=== PATIENT | male | born 1980 | race Caucasian/White ===

== ENCOUNTER 2016-06-28 00:21 | Inpatient (IN) | payer OTHER ==
[~2016-06-28] VITALS: Ht 180.3 cm; Wt 118.2 kg
--- NOTE | ~2016-06-28 | ECH ---
Transthoracic Echocardiography Report (TTE) Demographics Patient Name LISA HOUSTON Date of Study 06/28/2016 Patient Number [id number] Visit Number [id number] Date of 1980 Room Number 306 Accession Number [id number] Gender Male Age 35 year(s) Referring Basilia Jaime Lawn Caretaker Terrie Snider [facility] Physician Johan Rios MD Physician Interpreting Benson [facility] Special Procedure Tech Physician Supervising Ordering Physician Johan Rios MD/AI PAGAN Nurse Stress Upholstery Trimmer Conclusions Contractility Score Summary At rest the following contractility abnormalities were noted: Hypokinesis of the Mid inferior, the Mid infero-lateral, the Basal infero-lateral and the Basal inferior segments. Contractility of all other segments appeared normal. Summary Technically adequate exam. The estimated left ventricular ejection fraction is 60%. Mild left ventricular hypertrophy. No significant valvular abnormalities. Recommendation The patient will be given the results of this study by the physician who ordered the exam. Procedure Type of Study TTE procedure:Echo Complete SF. Procedure Date Date: 06/28/2016 Start: 11:14 AM Technical Quality: Adequate visualization Indications:Acute [place]. Appropriate Use Criteria: 9 Height: 71 inches Weight: 250 pounds BSA: 2.32 m Rhythm: Within normal limits HR: 72 bpm BP: 114/71 mmHg Allergies - Penicillin. M-Mode/2D Measurements LV Diastolic Dimension: 4.63 cm LV Systolic Dimension: 2.68 cm LV Septum Diastolic: 1.19 cm LV PW Diastolic: 1.02 cm AO Root Dimension: 3.06 cm Cardiac Output: 6.64 l/min LA Dimension: 3.72 cm Cardiac Index: 2.86 l/min*m RV Diastolic Dimension: 3.56 cm LA volume index: 17 ml/m LVOT: 2.48 cm LVOT VTI: 19.11 cm RV Base: 3.2 cm LV Stroke volume: 92.26 ml RV Mid: 3.2 cm LV Stroke volume index: 39.77 ml/m RV Length: 8.5 cm Doppler Measurements AV Peak Velocity: 1.1 m/s MV Peak E-Wave: 0.76 m/s AV Peak Gradient: 4.84 mmHg MV Peak A-Wave: 0.52 m/s AV Mean Gradient: 2.45 mmHg MV E/A Ratio: 1.47 LVOT Peak Velocity: 0.93 m/s MV P1/2t: 64.5 msec AV Area (Continuity):4.12 cm MV Deceleration Time: 256.9 msec MV Area (PHT): 3.41 cm PV Peak Velocity: 0.68 m/s PV Peak Gradient: 1.85 mmHg RA Area: 14 cm Findings Left Ventricle The left ventricle is normal in size . Mild left ventricular hypertrophy. Diastolic assessment reveals normal relaxation. Right Ventricle Normal right ventricle structure and function. Left Atrium Normal left atrial size. Right Atrium Normal right atrial size. Mitral Valve Normal mitral valve structure and function. Trivial mitral regurgitation by color Doppler. Aortic Valve Normal aortic valve structure and function. Tricuspid Valve Normal tricuspid valve structure and function. Trivial tricuspid regurgitation by color Doppler. Pulmonic Valve Normal pulmonic valve structure and function. Pericardial Effusion No evidence of pericardial effusion. Miscellaneous Visualized portions of the aortic root and ascending aorta appear normal in size. Pleural Effusion No evidence of pleural effusion. Contractility Score LV regional wall motion:(0-Non visualized 1-Normal 2-Hypokinesis 3-Akinesis 4-Dyskinesis 5-Aneurysm) Signature
--- NOTE | ~2016-06-28 | CATH ---
Cardiac Diagnostic + PCI Report Demographics Patient Name ROSEMARIE Huang Gender Male Date of 1980 Age 35 year(s) Patient Number [id number] Date of Study 06/28/2016 Visit Number [id number] Room Number 432 Corporate ID Ht 180.34 cm Wt 113.4 kg Accession Number [id number] BSA 2.32 m kg/m Referring Fruehling Curt R Primary Physician Physician MD Judson ROSENBERG Performing Fruehling Curt R Secondary Physician Physician Diagnostic Fruehling Curt R Assisting Physician Physician Interventional Fruehling Curt R Physician Playground Attendant Physician MD Findings and Conclusions Diagnostic Findings and Conclusion Single vessel coronary artery disease. 100% proximal RCA with SONY 0 flow. Mild, non-obstructive coronary artery disease of the LAD and circumflex. LVEDP 13mmg. EF 50%. Diagnostic Recommendations Immediate PCI of the pRCA. Interventional Findings and Conclusion Successful PCI of the proximal RCA with a 3.5 x 28mm Synergy with nondenominational of SONY III flow. There was residual 80%, thrombotic disease proximal to the stent. Successfully treated with a 4.0 x 12mm Synergy to 0% residual. Distal 70% trhombotic lesion treated with a 2.5mm NC balloon to 30%. Interventional Recommendations Long-term dual antiplatelet therapy. 12 hours of Integrilin due to large thrombus burden. Aggressive risk factor modification. Procedure Description The patient was brought to the diagnostic cardiac catheterization laboratory by candlemaking laborer personal. Physician deemed procedure as EMERGENT. The planned puncture-incision site(s) were clipped and prepped with ChloraPrep and draped in the usual sterile manner. Conscious sedation, supplemental oxygen, and pain control medications were delivered by a registered nurse under physician guidance. Surface ECG rhythm, blood pressure measurement, and pulse oximetry were monitored throughout the procedure. Arterial access. The right radial access site was infiltrated with lidocaine. The vessel was entered with the Seldinger technique. A 6F sheath was advanced into the vessel and used for catheter placement. Selective right coronary angiography. A JR4 catheter was advanced into the right coronary vessel ostium under fluoroscopic guidance. Contrast was injected by hand. Images were obtained in multiple projections. Selective left coronary angiography. A JL3.5 catheter was advanced into the left coronary vessel ostium under Fluoroscopic guidance. Contrast was injected by hand. Images were obtained in multiple projections. Angioplasty and Stent Placement: A JR4 guiding catheter was used to intubate the RCA vessel. A 0.14 Luge wire was then used to cross the proximal RCA lesion. A 3.5 x 15 Trek balloon catheter was placed across the lesion and inflated. The balloon catheter was then removed. A 3.5 x 28 Synergy Drug Eluting Stent was placed and inflated. The stent balloon catheter was then removed. A 4.0 x 12 Synergy Drug Eluting Stent was placed proximal, overlapping and inflated. The stent balloon catheter was then removed. Post placement angiograms were performed. A 2.25 x 12 Emerge balloon was placed across the lesion in the distal RCA and inflated. The balloon catheter was then removed. Left heart catheterization with ventriculography. An angled pigtail catheter was advanced across the aortic valve to the left ventricle under fluoroscopic guidance. Resting hemodynamics were obtained. With the catheter at the left ventricular apex, contrast was injected. Images were obtained in HUITRON projection. Post-ventriculography LV pressure was obtained. The catheter was gradually withdrawn into the aorta with continuous pressure recording. Hemostasis: The sheath was removed and a TR Band was placed. Hemostasis was achieved. The patient was transferred to a the ICU nursing floor via cart accompanied by a nurse. The patient left the laboratory in stable condition. Procedure Procedure Type Diagnostic procedure:Angiography:, Coronary Angios w/[facility] PCI procedure:Drug Eluting Coronary Stent:, RCA The procedure was explained in detail to the patient. Risks, complications and alternative treatments were reviewed. Written consent was obtained. Medications Reviewed with Patient prior to Procedure. Complications: No Complication. Angiographic Findings Dominance: Right Cardiac Arteries and Lesion Findings LMCA: Normal (0% Stenosis). LAD: Lesion on Mid LAD: 40% stenosis . Lesion on 1st Diag: Proximal subsection.50% stenosis . LCx: Abnormal. Lesion on Prox CX: 20% stenosis . Lesion on 1st Ob Natalie: Proximal subsection.40% stenosis . RCA: Abnormal. Lesion on Prox RCA: Proximal subsection.100% stenosis 35 mm length reduced to 0%. Pre procedure SONY 0 flow was noted. Post Procedure SONY III flow was present. The guidewire cross was successful.The lesion was diagnosed as a high risk lesion.Culprit lesion. Devices used - LUGE WIRE 0.014" X 180CM. Number of passes: 1. - CATH BLN RX TREK 3.03C05XM. Diameter: 3.5 mm. Length: 15 mm. 3 inflation(s) to a max pressure of: 12 jono. - CATH STENT SYNERGY 3.5 X 28. 1 inflation(s) to a max pressure of: 16 jono. - CATH STENT SYNERGY 4.0 X 12. 3 inflation(s) to a max pressure of: 15 jono. Lesion on Dist RCA: Distal subsection.70% stenosis reduced to 30%. Pre procedure SONY III flow was noted. Post Procedure SONY III flow was present. The guidewire cross was successful.The lesion was diagnosed as a moderate risk lesion. Comments:Thrombotic Devices used - CATH BAL RX EMERGE 2.25X12. 1 inflation(s) to a max pressure of: 6 jono. Coronary Tree Procedure Data Procedure Date Date: 06/28/2016Start: 01:05 AMEnd: 02:21 AM Entry Locations - Percutaneous access was performed through the Right Radial artery (Primary location). A 6 Fr sheath was inserted. Hemostasis was successfully obtained using a TR band. Procedure Medications Order and Administration + + + + + !Time !Medication !Dosage !Route ! + + + + + !06/28/2016 !Brilinta (Ticagrelor) (ACC_20) !180 mg !P.O. ! !01:20 AM ! ! ! ! + + + + + !06/28/2016 !Integrilin (ACC_7) !10.2 !I.V. bolus! !01:24 AM ! ! ! ! + + + + + !06/28/2016 !Integrilin (ACC_7) !2 !I.V. drip ! !01:24 AM ! !mcg/kg/min ! ! + + + + + !06/28/2016 !Integrilin (ACC_7) !10.2 !I.V. bolus! !01:34 AM ! ! ! ! + + + + + 06/28/2016 !Patrick-Synephrine (Phenylephrine) !100 mcg !I.V. ! !01:39 AM ! ! ! ! + + + + + 06/28/2016 !Sodium Chloride !10 ml !I.V. ! !01:39 AM ! ! ! ! + + + + + !06/28/2016 !Atropine ! !I.V. ! !01:40 AM ! ! ! ! + + + + + !06/28/2016 !Patrick-Synephrine (Phenylephrine) !100 mcg !I.V. ! !01:46 AM ! ! ! ! + + + + + !06/28/2016 !Sodium Chloride !10 ml !I.V. ! !01:46 AM ! ! ! ! + + + + + !06/28/2016 !Zofran !4 mg !I.V. ! !01:49 AM ! ! ! ! + + + + + !06/28/2016 !Sodium Chloride !10 ml !I.V. ! !01:49 AM ! ! ! ! + + + + + !06/28/2016 !SF Radial Cocktail: 200mcg Nitro, ! !I.A. ! !01:07 AM !2.5 mg Verapamil, 5000u Heparin ! ! ! + + + + + Devices Used - A6 FrCATH 6F FR4 CATHETER 100CMwas used for:RightsideCoronary Angios. - A6 FrCATH 6FR FL3.5 CATHETER 100CMwas used for:LeftsideCoronary Angios. - A6 FrGUIDE CATHETER 6FR FR 4.0 100CMwas used for:RightsideRCA Intervention. - A6 FrCATH 6FR PIG 145 110CM CATHETERwas used for:LeftsideLV Pressures. Contrast Material - Isovue 50181 ml Estimated Blood Loss: 15 ml. Medical History Allergies - Penicillin. Risk Factors The patient risk factors include:treated hypertension, last creatinine: 0.9 mg/dl, creatinine clearance: 180.25 ml/min and Current/Recent(w/in 1 year) tobacco use. Admission Data Admission Date: 06/28/2016 Admission Time: 12:40 AM [facility] LV function assessed as:Abnormal. Ejection Fraction - 06/28/2016 - Method: LV gram. EF%: 50. LVA Segment Contractility 1 - Normal 3 - Mild 5 - Severe 7 - Dyskinesis hypokinesis hypokinesis 2 - 4 - Moderate 6 - Akinesis 8 - Aneurysm Hypokinesis hypokinesis Hemodynamics Condition: Rest O2 Consumption: Estimated: 297.45Heart Rate: 84 bpm Pressures (mmHg) +-----+ + !Site !Pressure ! +-----+ + !AO !96/71 (82) ! +-----+ + !LV !97/7 ,14 ! +-----+ + !LV !99/9 ,13 ! +-----+ + !AO !95/68 (82) ! +-----+ + !LV !102/7 ,16 ! +-----+ + Valve Gradients and Areas + +---------+---------+---------+ +---------+ + !Valve !Peak !Mean !Area !Index !Flow !Source ! + +---------+---------+---------+ +---------+ + !Aortic !6 !8 ! ! ! ! ! + +---------+---------+---------+ +---------+ + !Aortic !6 !8 ! ! ! ! ! + +---------+---------+---------+ +---------+ + Shunts Oxygen Values O2 Capacity 179.52 O2 Consumption 297.45 Discharge Data Discharge Date: 06/29/2016 Hospital Status: Inpatient Signatures
--- NOTE | 2016-06-28 05:25 | ER ---
ADMIT: 06/28/2016 RM/LOC: 306 [facility] MR#: [id number] [address] [address] LISA HOUSTON [address] [place] [id number] Emergency Room Report SEX: M AGE: 35 : 1980 DATE: 06/28/2016 The patient is a 35-year-old male, came to the ER with chief complaint of chest pain, which started while the patient was resting about an hour and half ago, it was anterior mid chest and there is no radiation. Pain does not increase with palpation of the area or deep inspiration. Pain is sharp and is [id number] in severity and has been continuous since then. The patient denies similar pain in the past. The patient has a history of high blood pressure, and is also smoking. The patient denies any drug use too. In the ER, at first the patient was put on monitor, patient was mildly tachycardic, blood pressure systolic was in 130s, with a diastolic of 80s. O2 saturation was 99% on room air. First EKG was suggestive of ST elevation in inferior leads 2, 3, aVF, and also some reciprocal changes in anterior leads, just ST depression in V3. The patient received aspirin in the ER p.o. The patient received 2 doses of sublingual nitroglycerin, which did not change the pain substantially after the patient received a dose of morphine. After the EKG, CAT lab was informed that Dr. Prado, account executive key accounts was consulted. Chest x-ray did not show any widening of the diaphragm or any capping of the left lung. Dr. Prado at bedside examined the patient. The patient was admitted to cath lab manager for further followups and treatments PCI. Followup labs came back, the patient had potassium of 2.6 and the corrected calcium was 7.4. I contacted the cath lab manager and informed the nurse to transfer the information to Dr. Prado. FINAL DIAGNOSIS: ST-elevation myocardial infarction. Jameson Frias MD/ camilo JOB #: [id number] CC: Lexi Cui MD, Attending Physician Lexi Cui MD, Family Physician
--- NOTE | 2016-06-30 07:51 | CO ---
ADMIT: 06/28/2016 RM/LOC: 306 [facility] MR#: [id number] [address] [address] LISA HOUSTON [address] [place] [id number] Consultation SEX: M AGE: 35 : 1980 DATE OF CONSULTATION: 06/28/2016 ATTENDING PHYSICIAN: Curt Prado CONSULTING PHYSICIAN: Lexi Cui MD REASON FOR CONSULTATION: Medical followup, consult requested by Cardiology. HISTORY OF PRESENT ILLNESS: Mr. Houston came to the hospital late in the evening on 06/27/2016, complaining of chest pain. In the emergency room, he was diagnosed with abnormal EKG and was having heart attack. He was taken directly to the specialist employee labor relations and had PCI performed by Dr. Curt Prado. The patient had been following in our clinic with Derrick Roper PA-C. He needs to establish primary care since Mr. Roper is no longer at [facility]. Mr. Houston has hypertension. He is a smoker. He has no history of diabetes. He has strong family history of coronary artery disease in his father and paternal grandfather. Dr. Curt rPado is managing medications and started the patient on statin therapy. I will defer to Dr. Prado regarding beta-arianna and anticoagulant therapy as well. I discussed with Mr. Houston smoking cessation and close followup in the office. I would recommend we see him in our clinic in 2-3 weeks to see how he is getting along overall, discuss smoking cessation therapies if needed, and he can also have lab work followup through our office for Dr. Prado. His exam was stable in the hospital. He was about 6 hours post procedure and just a little bit drowsy from being up most of the night. Otherwise, he denied chest pain, but is a little bit nauseated. I made no medical changes when I saw him. We will have hospital staff make a followup appointment for him. Lexi Cui MD/ camilo JOB #: [id number] CC: Curt Prado, Attending Physician Curt Prado, Family Physician
[2016-06-30] MEDS ORDERED: ASA CHILDREN'S81 MG PO (20:01)
[2016-06-30] MEDS ORDERED: COREG DPS6.25 MG PO (20:02)
[2016-06-30] MEDS ORDERED: BRILINTA90 MG PO (20:02)
[2016-06-30] MEDS ORDERED: BENICAR5 MG PO (20:02)
[2016-06-30] MEDS ORDERED: CRESTOR20 MG PO (20:02)
[2016-06-30] MEDS ORDERED: PROTONIX40 MG PO (20:02)
[2016-06-30] MEDS ORDERED: HABITROL TD (20:03)
--- NOTE | 2016-07-07 17:29 | HP ---
ADMIT: 06/28/2016 RM/LOC: 306 [facility] MR#: [id number] [address] [address] LISA HOUSTON [address] [place] [id number] History and Physical SEX: M AGE: 35 : 1980 DATE OF SERVICE: REASON FOR EVALUATION: Inferior injury pattern on EKG and chest pain. HISTORY OF PRESENT ILLNESS: Lisa is a 35-year-old smoker with no prior cardiac history. He says he is also treated for hypertension. His father has had a heart attack. He said he did not feel very well today, but nothing specific. He was just getting ready for bed tonight about an hour and a half ago and started having severe burning substernal chest pain with some radiation to his left arm with shortness of breath and diaphoresis. He was brought to the emergency room. EKG in the ER shows inferolateral ST elevation with reciprocal changes. He currently has a blood pressure of 137/66. His heart rate is in the 90s. He is alert and awake, but in obvious distress. He has been given heparin and aspirin in the emergency room. ALLERGIES: DENIES ANY MEDICAL ALLERGIES. HOME MEDICATIONS: Include fish oil, Benicar, and hydrochlorothiazide. PAST MEDICAL HISTORY: His only chronic illness is hypertension. PAST SURGICAL HISTORY: No prior surgeries. FAMILY HISTORY: Positive for premature coronary artery disease in his father. SOCIAL HISTORY: He drives a garbage truck. He is . He has smoked for many years. He denies any alcohol or drug use. REVIEW OF SYSTEMS: A focused cardiac review of systems was performed and noncontributory other than that mentioned above. PHYSICAL EXAMINATION: GENERAL: He is alert and awake, but he is in obvious distress, rising a bit in his hospital bed complaining of ongoing pain. His color is poor. SKIN: Warm, mildly clammy and he is pale. EYES: Sclerae clear. No xanthelasmas. ENT: Oral mucosa is pink and moist. No jugular venous distention or carotid bruits. NECK: Little difficult to assess due to his long ruggiero. CHEST: Poor respiratory effort and shallow respirations, but no wheezes, rhonchi, or crackles. HEART: Regular. No significant murmurs, rubs, or gallops are noted. ABDOMEN: Soft and nontender. Mildly obese. MUSCULOSKELETAL: Gait is normal. EXTREMITIES: Peripheral pulses palpable. No clubbing, cyanosis or edema. PSYCHIATRIC: He is in moderate distress. Alert and oriented. Mood and ADMIT: 06/28/2016 RM/LOC: 306 [facility] MR#: [id number] [address] [address] HOUSTONLISA [address] [place], [place] [id number] History and Physical SEX: M AGE: 35 : 1980 affect are appropriate. LABORATORY DATA: Pending. IMPRESSION: 1. Acute inferior ST-elevation myocardial infarction. 2. Tobacco abuse. 3. Hypertension. RECOMMENDATIONS: He has ongoing pain with inferior ST-elevation. I recommended emergent coronary angiogram with an eye towards percutaneous coronary intervention. I discussed the procedure with him including the potential risk and benefits. Potential risks including, but not limited to, bleeding, worsening of his OR, renal failure, arrhythmias, and even a small possibility of . He states understanding and wishes to proceed. In the interim, he has received heparin and aspirin. I am holding off on oral beta- arianna at the moment because of his inferior STEMI in the laboratory courier is here to pick him up. Curt Prado MD/ camilo JOB #: [id number] CC: Lexi Cui, Attending Physician Lexi Cui, Family Physician
--- NOTE | 2016-08-14 14:23 | DS ---
ADMIT: 06/28/2016 RM/LOC: 432 [facility] MR#: [id number] [address] [address] [place] [address] General Discharge Summary SEX: M AGE: 35 : 1980 ADMISSION DATE: 06/28/2016 DISCHARGE DATE: 06/29/2016 FINAL DIAGNOSES: 1. Acute inferior ST elevated myocardial infarction. 2. Tobacco abuse. 3. Hypertension. 4. Coronary artery disease, status post 100% proximal RCA with SONY-0 flow, stented with a 3.5 x 28 mm Synergy stent with scientologist of SONY-3 flow. 5. Mild nonobstructive coronary artery disease of the LAD and circumflex with an LVEDP of 13. CONSULTS: Dr. Cui for primary care. DIAGNOSTICS/PROCEDURES: CT of head without contrast was normal. Chest x-ray showed negative portable chest x2. Diagnostic left heart catheterization showed 100% proximal RCA with SONY-0 flow, mild nonobstructive coronary artery disease of the LAD and circumflex, LVEDP of 13 mmHg, EF of 50%. The RCA did receive a 3.5 x 28 mm Synergy stent with scientologist of SONY-3 flow without complications. Echocardiogram done, 06/28/2016, showed an EF of 60%, mild concentric LVH. No significant valvular abnormalities. HOSPITAL COURSE: The patient admitted to the emergency room with chest pain and EKG consistent with inferior injury pattern and diagnosed with an inferior ST elevated myocardial infarction. He did have a known history of tobacco abuse and also hypertension. He did not feel very well today but did not have any real specific complaints. He was getting ready for bed and he started having severe burning substernal chest pain with radiation to his left arm and shortness of breath and diaphoresis. He was brought into the emergency room, where his EKG showed inferior lateral ST elevation with reciprocal changes. He was hemodynamically stable, was given heparin and aspirin in the emergency room and taken emergently to the laboratory veterinarian where he was found to have 100% occluded RCA which did receive a stent without any complications. He was then transferred to the ICU. Unfortunately, he seem to spencer nausea and vomiting and therefore had a CT scan of his head to make sure there was no neurological injury. This looked okay, and he responded well to Phenergan. He did not respond with any relief to Zofran. His echocardiogram showed a preserved ejection fraction. His primary care was consulted also for further evaluations and recommendations. We did talk about smoking cessation. On 06/29/2016, he was felt okay for discharge. He wanted to go home. He had had no arrhythmias, his nausea and vomiting had resolved, and he had been walking the halls with no recurrent chest pain. He was dismissed on: 1. Aspirin 81 mg p.o. daily. 2. Benicar 10 mg p.o. daily. ADMIT: 06/28/2016 RM/LOC: 432 [facility] MR#: [id number] [address] [place] [id number] HOUSTONLISA WALKER [address] [place] [address] General Discharge Summary SEX: M AGE: 35 : 1980 3. Brilinta 90 mg p.o. b.i.d. 4. Coreg 6.25 mg p.o. b.i.d. 5. Crestor 20 mg p.o. at bedtime. 6. Protonix 40 mg p.o. daily. 7. Habitrol patch. DISCHARGE DISPOSITION: To home. DISCHARGE CONDITION: Stable. VITAL SIGNS AT DISCHARGE: Blood pressure 134/86, O2 saturation of 96%, pulse of 96, respirations of 16, temp of 98.5. SHAKIRA Morrison / Curt Prado MD / modl JOB #: [id number] CC: Curt Prado MD, Attending Physician Curt Prado MD, Family Physician
== END 2016-06-29 18:35 | disposition home or self-care (01) | DRG 247 ==
LOC: ER 00:21 → 3ICU 00:40 → 4PCU 18:23
PROVIDERS: ADMIT Internal Medicine
PROC: 4A023N7 Measurement of Cardiac Sampling and Pressure, Left Heart, Percutaneous Approach (ICD-10-PCS; principal; 2016-06-28)
PROC: B2111ZZ Fluoroscopy of Multiple Coronary Arteries using Low Osmolar Contrast (ICD-10-PCS; principal; 2016-06-28)
PROC: 027035Z Dilation of Coronary Artery, One Artery with Two Drug-eluting Intraluminal Devices, Percutaneous Approach (ICD-10-PCS; principal; 2016-06-28)
DX: I21.19 ST elevation (STEMI) myocardial infarction involving other coronary artery of inferior wall (principal); I10 Essential (primary) hypertension; I25.10 Atherosclerotic heart disease of native coronary artery without angina pectoris; F17.200 Nicotine dependence, unspecified, uncomplicated; Z82.49 Family history of ischemic heart disease and other diseases of the circulatory system; Z86.718 Personal history of other venous thrombosis and embolism